=== PATIENT | male | born 1970 | race Two or more races ===

== ENCOUNTER 2025-08-15 20:15 | Inpatient (IN) | payer MEDICARE ==
[~2025-08-15] VITALS: Ht 172.7 cm; Wt 56.2 kg
[2025-08-15 20:15] VITALS: BP 149/79
[2025-08-15] MEDS ORDERED: MELA5TAB21 PO (20:41)
[2025-08-15] MEDS ORDERED: ASPI81TA31 PO (20:41)
[2025-08-15] MEDS ORDERED: DIVA250T PO (20:41)
[2025-08-15] MEDS ORDERED: DOCU100T2 PO (20:41)
[2025-08-15] MEDS ORDERED: CYAN100T44 PO (20:41)
[2025-08-15] MEDS ORDERED: FOLI1TAB27 PO (20:41)
[2025-08-15] MEDS ORDERED: ACET-3117 PO (20:41)
[2025-08-15] MEDS ORDERED: CHOL500062 PO (20:41)
[2025-08-15] MEDS ORDERED: THIA100T74 PO (20:41)
[2025-08-15] MEDS ORDERED: LORA-259 PO (20:41)
[2025-08-15] MEDS ORDERED: MULT-1188 PO (20:41)
[2025-08-15] MEDS ORDERED: MAGN400O6 PO (20:41)
[2025-08-15] MEDS ORDERED: NA P133E RC (20:41)
[2025-08-15] MEDS ORDERED: BISA10SU61 RC (20:41)
[2025-08-15] MEDS ORDERED: [UNRECOGNIZED DRUG - CODE] IJ (20:42)
[2025-08-15] MEDS ORDERED: MAGNESIUM HYDROXIDE 30 ML LIQUID UDC PO PRN (21:15)
[2025-08-15] MEDS ORDERED: QUETIAPINE FUMARATE 25 MG TABLET PO PRN (21:15)
[2025-08-15] MEDS ORDERED: MAG HYDROX/AL HYDROX/SIMETH 30 ML LIQUID UDC PO PRN (21:15)
[2025-08-15] MEDS: BLOOD SUGAR DIAGNOSTIC 1 EACH STRIP VI ONE (21:41)
[2025-08-15] MEDS: QUETIAPINE FUMARATE 25 MG TABLET PO PRN (22:21)
[2025-08-15] MEDS: ZOLPIDEM 5 MG TABLET PO PRN (23:18)
[2025-08-16 08:06] VITALS: BP 120/78; TEMP 98; O2SAT 100
[2025-08-16 08:16] LABS: GLUCOSE FASTING 99.0 mg/dL (70-115)
[2025-08-16] MEDS ORDERED: ACET325T53 PO (09:18)
[2025-08-16] MEDS ORDERED: CHOL-35 PO (09:18)
[2025-08-16 15:08] VITALS: BP 135/82; TEMP 98; O2SAT 99
[2025-08-16] MEDS: DIVALPROEX 250 MG TABLET.DR PO SCH (15:27)
[2025-08-16] MEDS: risperiDONE-M 0.5 MG TAB.RAPDIS PO SCH (20:13)
[2025-08-16 21:30] VITALS: BP 147/89; TEMP 95.7; O2SAT 100
[2025-08-17 08:04] VITALS: BP 125/75; TEMP 98; O2SAT 100
[2025-08-17] MEDS: risperiDONE-M 0.5 MG TAB.RAPDIS PO PRN (15:31)
[2025-08-17 15:41] VITALS: BP 123/67; TEMP 98; O2SAT 100
[2025-08-17 20:08] VITALS: BP 126/66; TEMP 98.1; O2SAT 99
[2025-08-17] MEDS: risperiDONE-M 0.5 MG TAB.RAPDIS PO SCH (21:46)
[2025-08-18] MEDS: ZOLPIDEM 5 MG TABLET PO PRN (00:55)
[2025-08-18] MEDS: ACETAMINOPHEN 325 MG TABLET PO PRN (02:31)
[2025-08-18 08:01] VITALS: BP 156/90; TEMP 98.2; O2SAT 99
[2025-08-18 15:21] VITALS: BP 112/76; TEMP 98.2; O2SAT 99
[2025-08-18 20:24] VITALS: BP 136/76; TEMP 98.1; O2SAT 98
[2025-08-18] MEDS: OLANZAPINE 10 MG VIAL IM ONE (23:08)
[2025-08-19 08:51] VITALS: BP 138/61; TEMP 98.2; O2SAT 99
[2025-08-19 16:39] VITALS: BP 122/78; TEMP 98.2; O2SAT 99
[2025-08-19 20:51] VITALS: BP 131/86; TEMP 98.3; O2SAT 100
[2025-08-20 09:01] VITALS: BP 152/78; TEMP 98.2; O2SAT 99
[2025-08-20 16:17] VITALS: BP 114/73; TEMP 98.2; O2SAT 99
[2025-08-20 19:58] VITALS: BP 121/76; TEMP 98.2; O2SAT 100
[2025-08-20] MEDS: risperiDONE-M 0.5 MG TAB.RAPDIS PO SCH (20:20)
[2025-08-21] MEDS: ENSURE ENLIVE (VAN) 240 ML LIQUID PO SCH (08:15)
[2025-08-21 08:22] VITALS: BP 127/87; TEMP 98.2; O2SAT 99
[2025-08-21] MEDS ORDERED: FLEET ENEMA 133 ML BOTTLE RC PRN (11:00)
[2025-08-21] MEDS ORDERED: BISACODYL 10 MG SUPP.RECT RC PRN (11:00)
[2025-08-21] MEDS ORDERED: MAGNESIUM HYDROXIDE 30 ML LIQUID UDC PO PRN (11:00)
[2025-08-21] MEDS: DIVALPROEX 125 MG TABLET.DR PO SCH (13:56)
[2025-08-21 16:42] VITALS: BP 120/53; TEMP 98.2; O2SAT 99
[2025-08-21] MEDS: DOCUSATE SODIUM 100 MG CAPSULE PO SCH (17:26)
[2025-08-22] MEDS: MULTIVIT, IRON, MIN NO. 8, FA TABLET PO SCH (09:19)
[2025-08-22] MEDS: FOLIC ACID 1 MG TABLET PO SCH (09:19)
[2025-08-22] MEDS: CHOLECALCIFEROL 1,000 UNIT TABLET PO SCH (09:19)
[2025-08-22] MEDS: THIAMINE HCL 100 MG TABLET PO SCH (09:19)
[2025-08-22] MEDS: CYANOCOBALAMIN 1,000 MCG TABLET PO SCH (09:19)
[2025-08-22] MEDS: ASPIRIN 81 MG TAB.CHEW PO SCH (09:19)
[2025-08-22 19:56] VITALS: BP 134/77; TEMP 98.7; O2SAT 100
[2025-08-22] MEDS: risperiDONE-M 0.5 MG TAB.RAPDIS PO SCH (20:48)
[2025-08-23 08:24] VITALS: BP 142/80; TEMP 98.2; O2SAT 96
[2025-08-23 15:19] VITALS: BP 123/72; TEMP 98; O2SAT 99
[2025-08-23 20:00] VITALS: BP 125/75; TEMP 98.2; O2SAT 99
[2025-08-24 07:58] VITALS: BP 140/85; TEMP 98.4; O2SAT 99
[2025-08-24 08:45] LABS: PLATELET COUNT (AUTO) 204 K/uL (152-348); RED BLOOD CELL COUNT(AUTO) 3.32 MIL/uL (4.06-5.63); RED CELL DISTRIBUTION WIDTH 18.3 % (12.1-16.2); WHITE BLOOD COUNT (AUTO) 4.1 K/uL (3.6-10.2)
[2025-08-24] MEDS: DIVALPROEX 500 MG TABLET.DR PO SCH (13:21)
[2025-08-24] MEDS ORDERED: DIVALPROEX 125 MG TABLET.DR PO SCH (14:00)
[2025-08-24 15:27] VITALS: BP 147/78; TEMP 98; O2SAT 99
[2025-08-24 20:00] VITALS: BP 137/68; TEMP 97.5; O2SAT 100
[2025-08-25 07:48] VITALS: BP 113/60; TEMP 98.2; O2SAT 98
== END 2025-08-25 13:45 | DRG 885 ==
LOC: ER 20:15 → GPS 20:38
PROVIDERS: ADMIT Psychiatry & Neurology Psychiatry
DX: F29 Unspecified psychosis not due to a substance or known physiological condition (principal); G40.509 Epileptic seizures related to external causes, not intractable, without status epilepticus; G93.40 Encephalopathy, unspecified; M25.551 Pain in right hip; F39 Unspecified mood [affective] disorder; F10.21 Alcohol dependence, in remission
CPT/HCPCS: 36415; 80164; 85025; J2358; J3490